=== PATIENT | female | born 1970 | race Caucasian/White ===

== ENCOUNTER 2023-12-25 00:11 | Day surgery (SDC) | payer OTHER, SELFPAY ==
[2023-12-14 15:05] VITALS: BMI 30.1
--- NOTE | 2023-12-14 15:11 | PC.NURSE ---
Report to the Outpatient Waiting Room, entrance under the green pavilion located off [facility], at time 0830 on date 12/25/23. Planned Procedure Time: 1030. Time changes happen often and if your time is changed the preop area will call you the afternoon before. - You and your visitor will be asked to self-screen and do not enter if you have any COVID symptoms. - A mask is optional within the hospital at this time. Patients may have clear liquids (water, carbonated beverages, clear teas, apple juice) until 3 hours prior to surgery with a maximum of 20 ounces. - No food from midnight until time of surgery Take the following medications with a SIP of water the morning of surgery: SERTRALINE DO NOT STOP ANY OF YOUR OTHER PRESCRIPTION MEDICATIONS PRIOR TO SURGERY ?EXCEPT THE FOLLOWING Medications to discontinue per physician: N/A Date to take last dose: N/A Please no make-up, nail [place], hairspray, perfume, deodorant, or body powder the day of surgery. No jewelry (including any body piercings) or valuables the day of surgery, leave them at home. Please take a shower or bath the night before, or the morning of, surgery with an antibacterial soap. Wear comfortable, loose fitting clothing. - Jewelry must be removed prior to entering the operating room. Rings and piercings that are not removed may be cut off. - The hospital will not accept responsibility for valuables. - Please leave all valuables, including medications, at home the day of surgery. If you are going home after surgery, a licensed cat driver must drive you home. - NO public transportation without another adult if you receive anesthesia. - We recommend that an adult stay with you for 24 hours following discharge. - We also recommend that you do not drive, make important decision, drink alcoholic beverages, or take any drugs that were not prescribed by your health care provider for at least 24 hours after your discharge time. Follow any additional instructions given to you from your surgeon. If you or anyone in your household have experienced Covid symptoms in the past week, please notify your surgeon or the nurse liaison at the phone number below for possible testing. Telephone instructions given to PT Lary CORREA and asked if any additional questions and then verbalized understanding. Patient advised to call surgeon office or pre surgery nurse liaison [phone] if any additional questions.
[2023-12-25] VITALS (10 sets, daily range): BP systolic 83–124; BP diastolic 45–71; PULSE 76–101; RESP 10–20; TEMP 36.4–36.7; O2SAT 93–99
[2023-12-25] MEDS: LACTATED RINGERS 1,000 ML 999 ML IV CONT (08:40)
[2023-12-25 08:54] LABS: Urine Cotinine NEGATIVE
--- NOTE | 2023-12-25 09:29 | P.PNAN_ITS ---
Anes - Initial Pre Proc Eval Procedure: Operation Date: 12/25/23 10:30 Proposed Procedures p Bilateral Breast Augmentation Mastopexy, with Galaflex, - Brett Sauceda MD s Bilateral Lateral Liposuction of Breasts - Brett Sauceda MD Date/Time: 12/25/23 09:29 Surgeon: Brett Sauceda MD Pre Op Diagnosis: micromastia,breast ptosis Patient Data Age: 53 Gender: F Height: 1.6 m Weight: 80.8 kg Last Vital Signs Temp 97.6 F 12/25/23 09:24 Pulse 76 12/25/23 09:24 Resp 16 12/25/23 09:24 BP 116/71 12/25/23 09:24 Pulse Ox 97 12/25/23 09:24 O2 Del Method Room Air 12/25/23 09:24 Allergies Allergy/AdvReac Type Severity Reaction Status Date / Time meperidine [From Demerol] Allergy Hives Verified 12/25/23 08:22 Home Medications Medication Instructions Recorded Confirmed Type sertraline 100 mg tablet 100 mg PO DAILY 12/14/23 12/14/23 History Laboratory Tests 12/25/23 08:29 Cotinine Negative Patient hx anesthesia problems: none Family hx anesthesia problems: none Results Review: All pre-operative results and documents have been reviewed as part of the pre- operative evaluation. [facility] Social History Social History Years smoked: 20 Smoking status: Former smoker Tobacco type: cigarettes Smoking end date: 11/04/23 Alcohol intake: current Alcohol use details: 10/MONTH Substance use: never Substance use type: does not use Living arrangements: with family Spiritual care concerns: No Anes - Eval Final PreProcedure Day of Procedure 12/25/23 09:29 Patient weight: obese Heart: regular rate and rhythm Lungs: clear to auscultation Airway: Mallampati scale class II Neurological: alert and oriented Last oral intake: >/= 8 hours ASA classification: II Emergent: no Anesthetic plan: proceed Anesthesia type and monitoring: general LMA and standard monitoring Results Review: All pre-operative results and documents have been reviewed as part of the pre- operative evaluation. Informed Consent: The patient's anesthetic plan and its attendant risks and benefits were discussed with the patient/family/POA. Questions were solicited and answers provided to the satisfaction of the patient/family/POA.
--- NOTE | 2023-12-25 10:26 | WPDHPUPDATE1 ---
History and Physical Update Update Date/Time: 12/25/23 10:26 History and Physical has been reviewed, including an updated exam of the patient. There are NO changes in the patient's condition. Risks, benefits, and alternatives have been discussed and questions answered. Patient agrees to proceed with procedure.
--- NOTE | 2023-12-25 10:26 | W.PM.PROC2 ---
Procedure Note - Detailed Date of Procedure 12/25/23 Pre-op Diagnosis micromastia,breast ptosis Post-op Diagnosis Same Procedure Performed Bilateral Augmentation Mastopexy with Galaflex Surgeon Brett Sauceda MD Anesthesia General Findings Inverted T Superior pedicle Bilateral Kiran SoftTouch 490cc Right: REF# [id number] SN [id number] Left: REF# [id number] SN [id number] Galaflex REF# [id number] Description of Procedure She is here today for bilateral breast augmentation mastopexy. Previously and again today the risks, benefits, alternatives were discussed in extensive detail. I wanted her to be very realistic about the risks involved as well as expectations. We discussed aftercare and what to monitor for. Made sure answered all of her questions to her satisfaction today and consent was obtained. Marked in the preoperative holding area with their verification. The patient was taken to the operating room placed supine on the operating table. Anesthesia was provided by anesthesiology. A surgical time-out was taken. She was prepped and draped in a standard sterile fashion. Tegaderm nipple Finn were placed. Bilateral lateral breast infiltrated with tumescent solution (low volume). A 15 blade used to make an incision just superior to the inframammary fold leaving a cusp of de-epithelized tissue at the t junction. Dissection was continued until the chest wall as identified. I incised the pectoralis major along its inferior border and completely released the inferior border leaving the medial border intact. I created a subpectoral pocket in the appropriate dimensions based on our preoperative planning for the implant. I then copiously irrigated with saline solution and verified a strict hemostasis. Next the use a triple antibiotic and Betadine containing solution to irrigate the pocket. I washed my gloves with the triple antibiotic and Betadine solution. We washed the implant immediately upon opening it with this solution and only opened it when we needed it. I used implant funnel and no-touch technique. The implant was introduced into the pocket using the funnel. Having verified positioning of the implant this was closed using 2-0 PDS. I tailor tacked the breast into position. Placed her in a sitting position. Verified the nipple-areolar location based on preoperative planning as well as intraoperative observations and measurements in full agreement. Suction lipectomy was completed laterally with 4-0 basket cannula based on S.A.F.E. technique. She was placed supine. I de-epithelialized the pedicle. I then removed the inferior central portion of the breast need making sure the implant was well protected. I elevated medial and lateral tissue flaps as well for planned closure. Galaflex was soaking on the back table in a betadine solution. Trimmed and sutured into placed with 2-0 Vicryl. I closed along the IMF with 2-0 Stratafix. Along the vertical with 2-0 PDS. I closed around the areola with 3-0 strata fix. 3-0 Monocryl along the vertical. 3-0 Stratafix along the IMF. I finally closed everything with running subcuticular 4-0 Monocryl and tissue glue. Fluffs and surgical bra were placed. Estimated Blood Loss 50 Drains No Packing No Pathology None sent Complications No immediate complications Condition Stable Disposition PACU
[2023-12-25] MEDS: BUPivacaine HCL 0.25% PF 30 ML VIAL INFILTRATE (10:48)
[2023-12-25] MEDS: NACL 0.9% IRRIG POUR BOTTLE 900 ML, GENTAMICIN SULFATE INJ 160 MG, ceFAZolin 2 GM, POVI... IRRIGATION (10:48)
[2023-12-25] MEDS: ceFAZolin 2 GM/D5W 50 ML 2 GM/50 ML BAG IVPB (10:48)
[2023-12-25] MEDS: LACTATED RINGERS IRRIG 1,000 ML, LIDOCAINE HCL 1% LOCAL INJ 50 ML, EPINEPHrine HCL INJ ... INFILTRATE (10:48)
[2023-12-25] MEDS: LIDO 1%/EPINEPHRINE 1:100,000 50 ML VIAL 30 ML INFILTRATE (10:48)
[2023-12-25] MEDS: TRANEXAMIC ACID 1,000MG/ISO100 1,000 MG/100 ML BAG 200 MG IVPB (10:56)
[2023-12-25] MEDS: LACTATED RINGERS 1,000 ML 30 ML IV CONT (14:08)
[2023-12-25] MEDS: fentaNYL CITRATE INJ (*CRX) 100 MCG/2 ML VIAL 25 MCG IV PUSH ×3 (14:48→15:08)
[2023-12-25] MEDS: oxyCODONE HCL (*CRX) 5 MG TAB IR PO (15:32)
== END 2023-12-25 16:11 | disposition home or self-care (01) ==
PROVIDERS: Visit Provider Surgery Plastic and Reconstructive Surgery
PROC: (CPT 19316; principal; 2023-12-25 10:30)
PROC: (CPT 15877; 2023-12-25 10:30)
DX: Z41.1 Encounter for cosmetic surgery (principal); N64.82 Hypoplasia of breast; N64.81 Ptosis of breast; Z87.891 Personal history of nicotine dependence; E66.9 Obesity, unspecified; Z68.31 Body mass index [BMI] 31.0-31.9, adult
CPT/HCPCS: 19325; 19316; 15777 ×2; 80307; A9270; J0171; J0690; J1100; J1170; J1580; J2250; J2405; J2704; J3010; J7120

== ENCOUNTER 2024-01-17 00:09 | Day surgery (SDC) | payer OTHER, SELFPAY ==
[2024-01-14 10:49] VITALS: BMI 31.5
--- NOTE | 2024-01-14 10:50 | PC.NURSE ---
Report to the Outpatient Waiting Room, entrance under the green pavilion located off [facility], at time 0700 on date 01/17/24. Planned Procedure Time: 0900. Time changes happen often and if your time is changed the preop area will call you the afternoon before. - You and your visitor will be asked to self-screen and do not enter if you have any COVID symptoms. - A mask is optional within the hospital at this time. Patients may have clear liquids (water, carbonated beverages, clear teas, apple juice) until 3 hours prior to surgery with a maximum of 20 ounces. - No food from midnight until time of surgery Take the following medications with a SIP of water the morning of surgery: ANTIBIOTIC, SERTRALINE DO NOT STOP ANY OF YOUR OTHER PRESCRIPTION MEDICATIONS PRIOR TO SURGERY ?EXCEPT THE FOLLOWING Medications to discontinue per physician: ADVIL Date to take last dose: PER DR. CRENSHAW Please no make-up, nail italian, hairspray, perfume, deodorant, or body powder the day of surgery. No jewelry (including any body piercings) or valuables the day of surgery, leave them at home. Please take a shower or bath the night before, or the morning of, surgery with an antibacterial soap. Wear comfortable, loose fitting clothing. - Jewelry must be removed prior to entering the operating room. Rings and piercings that are not removed may be cut off. - The hospital will not accept responsibility for valuables. - Please leave all valuables, including medications, at home the day of surgery. If you are going home after surgery, a licensed pick up truck driver must drive you home. - NO public transportation without another adult if you receive anesthesia. - We recommend that an adult stay with you for 24 hours following discharge. - We also recommend that you do not drive, make important decision, drink alcoholic beverages, or take any drugs that were not prescribed by your health care provider for at least 24 hours after your discharge time. Follow any additional instructions given to you from your surgeon. If you or anyone in your household have experienced Covid symptoms in the past week, please notify your surgeon or the nurse liaison at the phone number below for possible testing. Telephone instructions given to PT Lary WRIGHT and asked if any additional questions and then verbalized understanding. Patient advised to call surgeon office or pre surgery nurse liaison [phone] if any additional questions.
[2024-01-17] VITALS (7 sets, daily range): BP systolic 97–114; BP diastolic 41–62; PULSE 70–98; RESP 12–20; TEMP 36.4; O2SAT 92–98
[2024-01-17] MEDS: LACTATED RINGERS 1,000 ML 30 ML IV CONT (08:04)
--- NOTE | 2024-01-17 08:17 | WPDHPUPDATE1 ---
History and Physical Update Update Date/Time: 01/17/24 08:17 History and Physical has been reviewed, including an updated exam of the patient. There are NO changes in the patient's condition. Risks, benefits, and alternatives have been discussed and questions answered. Patient agrees to proceed with procedure.
--- NOTE | 2024-01-17 08:17 | W.PM.PROC2 ---
Procedure Note - Detailed Date of Procedure 01/17/24 Pre-op Diagnosis wound left breast Post-op Diagnosis Same Procedure Performed Exploration left breast t junction wound with washout and closure Surgeon Brett Sauceda MD Anesthesia General Indications Underwent augmentation mastopexy with t junction breakdown. Could not definitively rule out implant exposure so patient elected to proceed with OR exploration possible implant exchange if exposed. Findings No evidence of implant exposure Description of Procedure She is here today for the above. Previously and again today the risks, benefits, alternatives were discussed in extensive detail. I wanted her to be very realistic about the risks involved as well as expectations. She understands she could loose her implant if any concern of infection. We discussed aftercare and what to monitor for. Made sure answered all of her questions to her satisfaction today and consent was obtained. Marked in the preoperative holding area with their verification. The patient was taken to the operating room placed supine on the operating table. Anesthesia was provided by anesthesiology. A surgical time-out was taken. We cleansed the skin and 1% lidocaine and 0.25% Marcaine with epinephrine was used anesthetize as a field block. She was prepped and draped in a standard sterile fashion. A 15 blade used to excise the left breast inferior t junction. The wound was explored and there was no evidence of implant exposure. No signs of infection. Copiously irrigated with saline solution on TUR tubing. Debrided. Verified strict hemostasis. Irrigated with Betadine solution. Closed with 2-0 PDS, 3-0 Monocryl, 3-0 Nylon. Fluffs and surgical bra were placed. Estimated Blood Loss 2 Drains No Packing No Pathology None sent Complications No immediate complications Condition Stable Disposition PACU
--- NOTE | 2024-01-17 08:48 | WPDANESEPP ---
Anes - Eval Pre Procedure Procedure: Operation Date: 01/17/24 09:00 Proposed Procedures p Left Breast Washout Versus Left Breast Implant Exchange - Brett Sauceda MD Date/Time: 01/17/24 08:48 Pre Op Diagnosis: wound left breast Patient Data Age: 53 Gender: F Height: 1.6 m Weight: 82.7 kg Last Vital Signs Temp 97.5 F L 01/17/24 07:25 Pulse 70 01/17/24 07:25 BP 98/59 L 01/17/24 07:25 Pulse Ox 97 01/17/24 07:25 O2 Del Method Room Air 01/17/24 07:25 Allergies Allergy/AdvReac Type Severity Reaction Status Date / Time meperidine [From Demerol] Allergy Hives Verified 01/17/24 07:32 Home Medications Medication Instructions Recorded Confirmed Type sertraline 100 mg tablet 100 mg PO DAILY 12/14/23 01/14/24 History ibuprofen 200 mg tablet (Advil) 600 mg PO BID PRN Pain 01/14/24 01/14/24 History sulfamethoxazole 800 1 tablet PO BID 01/14/24 01/17/24 History mg-trimethoprim 160 mg tablet Patient hx anesthesia problems: none Family hx anesthesia problems: none Results Review: All pre-operative results and documents have been reviewed as part of the pre-operative evaluation. [facility] Past Medical History Medical History (Updated 01/17/24 @ 08:49 by Vipul Ambrocio CRNA) Admission for breast augmentation Anxiety and depression Surgical History Surgical History (Updated 01/17/24 @ 08:50 by Vipul Ambrocio CRNA) History of augmentation mammoplasty Social History Social History Years smoked: 20 Smoking status: Former smoker Tobacco type: cigarettes Smoking end date: 11/04/23 Alcohol intake: current Alcohol use details: 10/MONTH Substance use: never Substance use type: does not use Living arrangements: with family Spiritual care concerns: No Exam Day of Procedure 01/17/24 08:48 Patient weight: overweight Heart: regular rate and rhythm Lungs: clear to auscultation Airway: Mallampati scale class II
[2024-01-17] MEDS: ceFAZolin 2 GM/D5W 50 ML 2 GM/50 ML BAG IVPB (08:56)
--- NOTE | 2024-01-17 08:58 | WPDANESEPPF ---
Anes - Initial Pre Proc Eval Procedure: Operation Date: 01/17/24 09:00 Proposed Procedures p Left Breast Washout Versus Left Breast Implant Exchange - Brett Sauceda MD Date/Time: 01/17/24 08:58 Surgeon: Brett Sauceda MD Pre Op Diagnosis: wound left breast Patient Data Age: 53 Gender: F Height: 1.6 m Weight: 82.7 kg Last Vital Signs Temp 97.5 F L 01/17/24 07:25 Pulse 70 01/17/24 07:25 BP 98/59 L 01/17/24 07:25 Pulse Ox 97 01/17/24 07:25 O2 Del Method Room Air 01/17/24 07:25 Allergies Allergy/AdvReac Type Severity Reaction Status Date / Time meperidine [From Demerol] Allergy Hives Verified 01/17/24 07:32 Home Medications Medication Instructions Recorded Confirmed Type sertraline 100 mg tablet 100 mg PO DAILY 12/14/23 01/14/24 History ibuprofen 200 mg tablet (Advil) 600 mg PO BID PRN Pain 01/14/24 01/14/24 History sulfamethoxazole 800 1 tablet PO BID 01/14/24 01/17/24 History mg-trimethoprim 160 mg tablet Patient hx anesthesia problems: none Family hx anesthesia problems: none Results Review: All pre-operative results and documents have been reviewed as part of the pre-operative evaluation. [facility] Past Medical History Medical History (Updated 01/17/24 @ 08:49 by Vipul Ambrocio CRNA) Admission for breast augmentation Anxiety and depression Surgical History Surgical History (Updated 01/17/24 @ 08:50 by Vipul Ambrocio CRNA) History of augmentation mammoplasty Social History Social History Years smoked: 20 Smoking status: Former smoker Tobacco type: cigarettes Smoking end date: 11/04/23 Alcohol intake: current Alcohol use details: 10/MONTH Substance use: never Substance use type: does not use Living arrangements: with family Spiritual care concerns: No Anes - Eval Final PreProcedure Day of Procedure 01/17/24 08:58 Patient weight: obese Heart: regular rate and rhythm Lungs: clear to auscultation Airway: Mallampati scale class II Neurological: alert and oriented Last oral intake: >/= 8 hours ASA classification: II Emergent: no Anesthetic plan: proceed Anesthesia type and monitoring: general LMA and standard monitoring Results Review: All pre-operative results and documents have been reviewed as part of the pre-operative evaluation. Informed Consent: The patient's anesthetic plan and its attendant risks and benefits were discussed with the patient/family/POA. Questions were solicited and answers provided to the satisfaction of the patient/family/POA.
[2024-01-17] MEDS: BUPivacaine HCL 0.25% PF 30 ML VIAL INFILTRATE (09:24)
[2024-01-17] MEDS: LIDO 1%/EPINEPHRINE 1:100,000 50 ML VIAL 30 ML INFILTRATE (09:25)
[2024-01-17] MEDS: oxyCODONE HCL (*CRX) 5 MG TAB IR PO (10:39)
== END 2024-01-17 11:11 | disposition home or self-care (01) ==
PROVIDERS: PCP Family Medicine; Visit Provider Surgery Plastic and Reconstructive Surgery
PROC: (CPT 19342; principal; 2024-01-17 09:00)
DX: T81.31XA Disruption of external operation (surgical) wound, not elsewhere classified, initial encounter (principal); Y83.8 Other surgical procedures as the cause of abnormal reaction of the patient, or of later complication, without mention of misadventure at the time of the procedure; F41.8 Other specified anxiety disorders; Z79.1 Long term (current) use of non-steroidal anti-inflammatories (NSAID); Z87.891 Personal history of nicotine dependence; Z98.82 Breast implant status
CPT/HCPCS: 19020; A9270; J0690; J1100; J1580; J2250; J2704; J3010; J7120

== ENCOUNTER 2024-08-06 05:57 | Day surgery (SDC) | payer OTHER, SELFPAY ==
[2024-07-22 14:35] VITALS: BMI 28.5
--- NOTE | 2024-08-05 14:52 | WPDANESEPPF ---
Anes - Initial Pre Proc Eval Procedure: Operation Date: 08/06/24 07:30 Proposed Procedures p Left Breast Implant Exchange with Washout - Brett Sauceda MD Date/Time: 08/05/24 14:52 Surgeon: Brett Sauceda MD Pre Op Diagnosis: History of Breast Augmentation Patient Data Age: 53 Gender: F Height: 1.6 m Weight: 73 kg Allergies Allergy/AdvReac Type Severity Reaction Status Date / Time meperidine [From Demerol] Allergy Intermediate Hives Verified 08/06/24 06:32 Home Medications Medication Instructions Recorded Confirmed Type meloxicam 15 mg tablet 15 mg PO HS 07/22/24 08/06/24 History naproxen sodium 220 mg tablet 220 mg PO BID PRN Pain 07/22/24 08/06/24 History (Aleve) paroxetine HCl 30 mg tablet 30 mg PO HS 07/22/24 08/06/24 History ropinirole 1 mg tablet 1 mg PO HS RESTLESS LEG 07/22/24 08/06/24 History Patient hx anesthesia problems: none Family hx anesthesia problems: none Results Review: All pre-operative results and documents have been reviewed as part of the pre-operative evaluation. [facility] Past Medical History Medical History (Updated 01/17/24 @ 08:49 by Vipul Ambrocio Jr., CRNA) Admission for breast augmentation Anxiety and depression Surgical History Surgical History (Updated 01/17/24 @ 08:50 by Vipul Ambrocio Jr., CRNA) History of augmentation mammoplasty Social History Social History Smoking packs per day: 0.5 Smoking cigarettes per day: 10.0 Years smoked: 20 Smoking pack-years: 10.00 Smoking status: Former smoker Tobacco type: cigarettes Second hand tobacco smoke exposure: Yes Smoking end date: 12/06/23 Alcohol intake: current Drinks per week: 2 Alcohol use details: 10/ Substance use: never Substance use type: does not use Living arrangements: with family Spiritual care concerns: No Anes - Eval Final PreProcedure Day of Procedure 08/05/24 14:52 Patient weight: obese Heart: regular rate and rhythm Lungs: clear to auscultation Airway: Mallampati scale class II Neurological: alert and oriented Last oral intake: >/= 8 hours ASA classification: II Emergent: no Anesthetic plan: proceed Anesthesia type and monitoring: general LMA and standard monitoring Results Review: All pre-operative results and documents have been reviewed as part of the pre-operative evaluation. Informed Consent: The patient's anesthetic plan and its attendant risks and benefits were discussed with the patient/family/POA. Questions were solicited and answers provided to the satisfaction of the patient/family/POA.
[2024-08-06] VITALS (8 sets, daily range): BP systolic 108–138; BP diastolic 63–87; PULSE 63–102; RESP 16–20; TEMP 36–36.6; O2SAT 95–100
[2024-08-06] MEDS: LACTATED RINGERS 1,000 ML 30 ML IV CONT ×2 (06:47→08:38)
--- NOTE | 2024-08-06 07:00 | WPDHPUPDATE1 ---
History and Physical Update Update Date/Time: 08/06/24 07:00 History and Physical has been reviewed, including an updated exam of the patient. There are NO changes in the patient's condition. Risks, benefits, and alternatives have been discussed and questions answered. Patient agrees to proceed with procedure.
--- NOTE | 2024-08-06 07:00 | W.PM.PROC2 ---
Procedure Note - Detailed Date of Procedure 08/06/24 Pre-op Diagnosis History of Breast Augmentation Post-op Diagnosis Same Procedure Performed Left breast implant washout / exchange Surgeon Brett Sauceda MD Anesthesia General Indications History bilateral augmentation mastopexy who has now developed a left breast Couch grade 3 capsule. Elected to proceed with left breast implant exchange. Findings Previous implant intact. I did use this as a sizer after capsule work. Thickened capsule. Removed the majority of inferior capsule. Sent to pathology Replacement implant: Kiran Pike SoftTouch [id number] Description of Procedure Preoperatively the risks, benefits, alternatives were discussed in extensive detail. I wanted to be very realistic about the risks involved as well as expectations. I was clear about how we could actually make her worse. She understands the capsular contracture could recur. Answered all questions to satisfaction. Voiced a clear understanding. Consent obtained. She was taken the operating room placed supine on the operating room table. Anesthesia provided by anesthesiology and prepped and draped in a standard sterile fashion. Surgical time-out was taken. 1% lidocaine and 0.25% Marcaine with epinephrine was used to provide a field block. Tegaderm nipple adam were placed. Fifteen blade used to excise the previous left IMF scars. Dissection was continued down until the capsule was identified and excised a significant portion of the capsule which was sent to pathology (see findings above). Implant removed. I then copiously irrigated with 1.5 L of saline solution on TUR tubing. Verified strict hemostasis. The implant was replaced into the pocket as a sizer and patient placed in a sitting position to verify positioning / appearance. Much softer (grade 1) and in good position. Implant removed and again irrigated with 1.5 L of saline solution on TUR tubing. Again verified a strict hemostasis. I then irrigated with Betadine containing solution. Using a no-touch technique and a Jaimes funnel the implant was introduced into the pocket. This was closed with 2-0 PDS followed by 3-0 Monocryl and a running subcuticular 4-0 Monocryl followed by tissue glue. Dressings were placed. She was woken taken to the PACU without difficulty. All instrument sponge counts were correct at the end of the case. Estimated Blood Loss 20 Drains No Packing No Pathology Yes (Left breast implant capsule ) Complications No immediate complications Condition Stable Disposition PACU
[2024-08-06] MEDS: ceFAZolin 2 GM/D5W 50 ML 2 GM/50 ML BAG IVPB (07:24)
[2024-08-06] MEDS: TRANEXAMIC ACID 1,000 MG/10 ML AMPUL 1000 MG IV PUSH (07:25)
[2024-08-06] MEDS: LIDO 1%/EPINEPHRINE 1:100,000 10 ML VIAL 30 ML INFILTRATE (07:28)
[2024-08-06] MEDS: NACL 0.9% IRRIG POUR BOTTLE 900 ML, GENTAMICIN SULFATE INJ 160 MG, ceFAZolin 2 GM, POVI... IRRIGATION (07:56)
--- NOTE | 2024-08-06 09:00 | SUR.PHASEI ---
PT AWAKE AND ALERT. TALKATIVE.
[2024-08-06] MEDS: oxyCODONE HCL (*CRX) 5 MG TAB IR PO (09:49)
--- NOTE | 2024-08-06 14:00 | WPDANESPN ---
Anes - Prog Note Post-Op Date/Time: 08/06/24 14:00 Cardiovascular status: normal Respiratory status: normal Airway patency: baseline Mental status: baseline Post-Op hydration status: normal Vital Signs: Last Vital Signs Temp 36.0 C L 08/06/24 08:38 Pulse 76 08/06/24 10:00 Resp 16 08/06/24 10:00 BP 110/65 08/06/24 10:00 Pulse Ox 99 08/06/24 10:00 O2 Del Method Room Air 08/06/24 10:00 O2 Flow Rate 6 08/06/24 08:50 Pain Score (VAS): 2 I/O: Intake & Output 08/05/24 08/06/24 08/06/24 23:59 07:59 15:59 Intake Total 300 Balance 300 Post-procedural complaints: none Patient Feedback: Patient satisfied with anesthetic care. Other Findings: Patient vital signs back to baseline. Patient denies nausea and vomiting. Patient's pain under control. Patient OK for discharge.
== END 2024-08-06 10:13 | disposition home or self-care (01) ==
PROVIDERS: PCP Family Medicine; Visit Provider Surgery Plastic and Reconstructive Surgery
PROC: (CPT 19342; principal; 2024-08-06 07:30)
DX: T85.49XA Other mechanical complication of breast prosthesis and implant, initial encounter (principal)
CPT/HCPCS: 19342

== ENCOUNTER 2024-08-06 08:52 | Outpatient (NON) | payer SELFPAY | END 2024-08-06 08:53 | disposition home or self-care (01) | LOC: ANHLAB 08-07 08:53 | PROVIDERS: PCP Family Medicine; Visit Provider Surgery Plastic and Reconstructive Surgery | DX: T85.44XA Capsular contracture of breast implant, initial encounter (principal) | CPT/HCPCS: 88304 ==

== ENCOUNTER 2024-08-20 16:37 | Day surgery (SDC) | payer OTHER, SELFPAY ==
[2024-08-20] VITALS (7 sets, daily range): BP systolic 94–137; BP diastolic 39–71; PULSE 80–98; RESP 12–14; TEMP 36.1–36.4; O2SAT 93–100; BMI 28.3; BMI 29.1
--- NOTE | 2024-08-20 10:41 | PC.NURSE ---
Report to the Outpatient Waiting Room, entrance under the green pavilion located off [facility], at time _430pm_ on date _[id number]_. Planned Procedure Time: _630pm_.? Time changes happen often and if your time is changed the preop area will call you the afternoon before. - You and your visitor will be asked to self-screen and do not enter if you have any COVID symptoms. Please call surgeon if you need to reschedule. - A mask is optional within the hospital at this time. Patients may have clear liquids (water, carbonated beverages, clear teas, apple juice) until 3 hours prior to surgery with a maximum of 20 ounces. - No food from midnight until time of surgery and no smoking Take only the following medications with a SIP of water on the morning of surgery___None DO NOT STOP ANY OF YOUR OTHER PRESCRIPTION MEDICATIONS PRIOR TO SURGERY EXCEPT THE FOLLOWING Medications to discontinue per physician ___None Please no make-up, nail maori, hairspray, perfume, deodorant, or body powder the day of surgery.? No jewelry (including any body piercings) or valuables the day of surgery, leave them at home.? Please take a shower or bath the night before, or the morning of, surgery with an antibacterial soap.? Wear comfortable, loose fitting clothing.? - Jewelry must be removed prior to entering the operating room.? Rings and piercings that are not removed may be cut off. - The hospital will not accept responsibility for valuables.? - Please leave all valuables, including medications, at home the day of surgery. If you are going home after surgery, a licensed armored truck driver must drive you home.? - NO public transportation without another adult if you receive anesthesia. - We recommend that an adult stay with you for 24 hours following discharge. - We also recommend that you do not drive, make important decision, drink alcoholic beverages, or take any drugs that were not prescribed by your health care provider for at least 24 hours after your discharge time. Follow any additional instructions given to you from your surgeon. Telephone instructions given to __Viki__and asked if any additional questions and then verbalized understanding. Patient advised to call surgeon office or pre surgery nurse liaison [phone] if any additional questions.
--- NOTE | 2024-08-20 17:25 | WPDHPUPDATE1 ---
History and Physical Update Update Date/Time: 08/20/24 17:25 History and Physical has been reviewed, including an updated exam of the patient. There are NO changes in the patient's condition. Risks, benefits, and alternatives have been discussed and questions answered. Patient agrees to proceed with procedure.
--- NOTE | 2024-08-20 17:27 | P.PNAN_ITS ---
Anes - Initial Pre Proc Eval Procedure: Operation Date: 08/20/24 18:30 Proposed Procedures p Left Breast Washout, Possible Implant Exchange - Brett Sauceda MD Date/Time: 08/20/24 17:27 Surgeon: Brett Sauceda MD Pre Op Diagnosis: hx breast augmentation Patient Data Age: 54 Gender: F Height: 1.6 m Weight: 74.7 kg Last Vital Signs Temp 36.1 C L 08/20/24 16:59 Pulse 85 08/20/24 16:59 BP 137/59 L 08/20/24 16:59 Pulse Ox 98 08/20/24 16:59 O2 Del Method Room Air 08/20/24 16:59 Allergies Allergy/AdvReac Type Severity Reaction Status Date / Time meperidine [From Demerol] Allergy Intermediate Hives Verified 08/20/24 10:36 Home Medications Medication Instructions Recorded Confirmed Type meloxicam 15 mg tablet 15 mg PO HS 07/22/24 08/20/24 History naproxen sodium 220 mg tablet 220 mg PO BID PRN Pain 07/22/24 08/20/24 History (Aleve) paroxetine HCl 30 mg tablet 30 mg PO HS 07/22/24 08/20/24 History ropinirole 1 mg tablet 1 mg PO HS RESTLESS LEG 07/22/24 08/20/24 History Patient hx anesthesia problems: none Family hx anesthesia problems: none Results Review: All pre-operative results and documents have been reviewed as part of the pre- operative evaluation. [facility] Past Medical History Medical History Admission for breast augmentation Anxiety and depression Surgical History Surgical History History of augmentation mammoplasty Social History Social History Smoking packs per day: 0.5 Smoking cigarettes per day: 10.0 Years smoked: 20 Smoking pack-years: 10.00 Smoking status: Former smoker Tobacco type: cigarettes Second hand tobacco smoke exposure: Yes Smoking end date: 11/05/23 Alcohol intake: current Drinks per week: 3 Alcohol use details: 10/MONTH Substance use: never Substance use type: does not use Living arrangements: with family Spiritual care concerns: No Anes - Eval Final PreProcedure Day of Procedure 08/20/24 17:27 Patient weight: overweight Heart: regular rate and rhythm Lungs: clear to auscultation Airway: Mallampati scale class II Neurological: alert and oriented Last oral intake: >/= 8 hours ASA classification: II Emergent: yes Anesthetic plan: proceed Anesthesia type and monitoring: general LMA and standard monitoring Results Review: All pre-operative results and documents have been reviewed as part of the pre- operative evaluation. Informed Consent: The patient's anesthetic plan and its attendant risks and benefits were discussed with the patient/family/POA. Questions were solicited and answers provided to the satisfaction of the patient/family/POA.
[2024-08-20] MEDS: SCOPOLAMINE 1 MG PATCH 1 PATCH TRANSDERM (17:32)
[2024-08-20] MEDS: LACTATED RINGERS 1,000 ML 30 ML IV CONT (17:35)
[2024-08-20] MEDS: ceFAZolin 2 GM/D5W 50 ML 2 GM/50 ML BAG IVPB (17:47)
[2024-08-20] MEDS: LIDO 1%/EPINEPHRINE 1:100,000 20 ML VIAL 30 ML INFILTRATE (18:04)
[2024-08-20] MEDS: BUPivacaine HCL 0.25% PF 30 ML VIAL INFILTRATE (18:05)
[2024-08-20] MEDS: NACL 0.9% IRRIG POUR BOTTLE 900 ML, GENTAMICIN SULFATE INJ 160 MG, ceFAZolin 2 GM, POVI... IRRIGATION (18:11)
--- NOTE | 2024-08-20 18:14 | SUR.OPER ---
Phase one skin and wound cleanser used for irrigation to left breast per Dr. Sauceda.
--- NOTE | 2024-08-20 18:21 | W.PM.PROC2 ---
Procedure Note - Detailed Date of Procedure 08/20/24 Pre-op Diagnosis hx breast augmentation Post-op Diagnosis Same Procedure Performed Left breast hematoma washout with implant exchange Surgeon Brett Sauceda MD Anesthesia General Findings Left breast hematoma approximatly 200cc No active bleeding Implant removed - intact Replacement implant left breast Kiran [employer]ike Softtouch 490cc REF# [id number] Description of Procedure Preoperatively the risks, benefits, alternatives were discussed in extensive detail. I wanted to be very realistic about the risks involved as well as expectations. I was clear about how we could actually make her worse. Answered all questions to satisfaction. Voiced a clear understanding. Consent obtained. She was taken the operating room placed supine on the operating room table. Anesthesia provided by anesthesiology and prepped and draped in a standard sterile fashion. Surgical time-out was taken. 1% lidocaine and 0.25% Marcaine with epinephrine was used to provide a field block. Tegaderm nipple adam were placed. Fifteen blade used to excise the previous left IMF scar. Dissection was continued down until the implant was identified as well as old hematoma. Implant removed. I then copiously irrigated with 2 L of saline solution on TUR tubing. Verified strict hemostasis. Also irrigated with with Phase one solution and allowed to soak for a prolonged period of time. Verified no active bleeding. I then irrigated with Betadine containing solution. Using a no-touch technique and a Jaimes funnel the implant was introduced into the pocket. This was closed with 2-0 PDS followed by 3-0 Monocryl and a running subcuticular 4-0 Monocryl followed by tissue glue. Dressings were placed. She was woken taken to the PACU without difficulty. All instrument sponge counts were correct at the end of the case. Estimated Blood Loss 10 Drains No Packing No Pathology None sent Complications No immediate complications Condition Stable Disposition PACU
[2024-08-20] MEDS: HYDROmorphone HCL INJ (*CRX) 1 MG/ML SYR 0.5 MG IV PUSH ×2 (19:03→19:11)
[2024-08-20] MEDS: oxyCODONE HCL (*CRX) 5 MG TAB IR PO (19:30)
== END 2024-08-20 19:51 | disposition home or self-care (01) ==
PROVIDERS: PCP Family Medicine; Visit Provider Surgery Plastic and Reconstructive Surgery
PROC: (CPT 19325; principal; 2024-08-20 18:30)
DX: L76.32 Postprocedural hematoma of skin and subcutaneous tissue following other procedure (principal); F41.8 Other specified anxiety disorders; Z79.1 Long term (current) use of non-steroidal anti-inflammatories (NSAID); Z98.890 Other specified postprocedural states; Z87.891 Personal history of nicotine dependence; Y83.8 Other surgical procedures as the cause of abnormal reaction of the patient, or of later complication, without mention of misadventure at the time of the procedure
CPT/HCPCS: 19325; 19328; A9270; J0690; J1100; J1171; J1580; J2003; J2004; J2405; J2704; J7120